=== PATIENT | female | born 1995 | race Caucasian/White ===

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

== ENCOUNTER 2017-10-20 18:17 | Emergency (ER) | payer SELFPAY ==
[2017-10-20 18:23] VITALS: BP 127/84
[2017-10-20] MEDS ORDERED: MOTRIN PO ONE (22:18)
[2017-10-20] MEDS ORDERED: BOOSTRIX IM ONE (22:18)
--- NOTE | 2017-10-20 22:19 | Emergency Department Report ---
ED Upper Extremity Inj HPI - General Chief Complaint: Extremity Injury, Upper Stated Complaint: FINGERS INFECTED Time Seen by Provider: 10/20/17 21:59 Source: patient Mode of arrival: Ambulatory Limitations: No Limitations - History of Present Illness Initial Comments: This is a 22-year-old female nontoxic, well nourished in appearance, no acute signs of distress presents to the ED with c/o of right ring finger artifical nail pain. Patient stated that he bended her nail to develop pain and there is dry blood. Patient denies any pus, drainage, fever, chills, nausea, vomiting, chest pain or shortness of breath. Patient denies any allergies significant past medical history. -: days(s) (3) Other Extremity Injury: Fingers: Right Other Injuries: none Place: home Severity scale (0 -10): 8 Improves With: immobilization Worsens With: movement of extremity Associated Symptoms: denies other symptoms. denies: weakness, numbness, neck pain, suspects foreign body, nausea/vomiting, heard/felt popping sensat - Related Data Home Medications Medication Instructions Recorded Confirmed Last Taken Tablet 1 tab PO DAILY 05/08/15 05/08/15 Unknown Previous Rx's Medication Instructions Recorded Last Taken Type Promethazine [Phenergan TAB] 25 mg PO Q6HR PRN #12 tab 05/08/15 Unknown Rx Amoxicillin [Trimox CAP] 500 mg PO Q12H 10 Days capsule 08/24/16 Unknown Rx Ibuprofen [Motrin 600 MG tab] 600 mg PO Q8H PRN 5 Days tablet 08/24/16 Unknown Rx Ibuprofen [Motrin] 600 mg PO Q8H PRN #30 tablet 10/20/17 Unknown Rx Sulfamethoxazole/Trimethoprim 1 each PO BID #14 tablet 10/20/17 Unknown Rx [Bactrim DS TAB] Allergies Allergy/AdvReac Type Severity Reaction Status Date / Time No Known Allergies Allergy Verified 10/20/17 18:21 ED Review of Systems ROS: Stated complaint: FINGERS INFECTED Other details as noted in HPI Constitutional: denies: chills, fever Eyes: denies: eye pain, eye discharge, vision change ENT: denies: ear pain, throat pain Respiratory: denies: cough, shortness of breath, wheezing Cardiovascular: denies: chest pain, palpitations Endocrine: no symptoms reported Gastrointestinal: denies: abdominal pain, nausea, diarrhea Genitourinary: denies: urgency, dysuria, discharge Musculoskeletal: denies: back pain, joint swelling, arthralgia Skin: denies: rash, lesions Neurological: denies: headache, weakness, paresthesias Psychiatric: denies: anxiety, depression Hematological/Lymphatic: denies: easy bleeding, easy bruising ED Past Medical Hx - Past Medical History Previous Medical History?: No - Surgical History Past Surgical History?: No - Social History Smoking Status: Never Smoker Substance Use Type: None - Medications Home Medications: Home Medications Medication Instructions Recorded Confirmed Last Taken Type Tablet 1 tab PO DAILY 05/08/15 05/08/15 Unknown History Promethazine [Phenergan TAB] 25 mg PO Q6HR PRN #12 tab 05/08/15 Unknown Rx Amoxicillin [Trimox CAP] 500 mg PO Q12H 10 Days capsule 08/24/16 Unknown Rx Ibuprofen [Motrin 600 MG tab] 600 mg PO Q8H PRN 5 Days tablet 08/24/16 Unknown Rx Ibuprofen [Motrin] 600 mg PO Q8H PRN #30 tablet 10/20/17 Unknown Rx Sulfamethoxazole/Trimethoprim 1 each PO BID #14 tablet 10/20/17 Unknown Rx [Bactrim DS TAB] ED Physical Exam - General Limitations: No Limitations General appearance: alert, in no apparent distress - Head Head exam: Present: atraumatic, normocephalic - Eye Eye exam: Present: normal appearance - ENT ENT exam: Present: mucous membranes moist - Neck Neck exam: Present: normal inspection - Respiratory Respiratory exam: Present: normal lung sounds bilaterally. Absent: respiratory distress - Cardiovascular Cardiovascular Exam: Present: regular rate, normal rhythm. Absent: systolic murmur, diastolic murmur, rubs, gallop - GI/Abdominal GI/Abdominal exam: Present: soft, normal bowel sounds - Extremities Exam Extremities exam: Present: normal inspection, full ROM, tenderness, normal capillary refill. Absent: joint swelling - Expanded Upper Extremity Exam Right General: Present: normal inspection Hand Wrist exam: Present: normal inspection, full ROM, tenderness, other ( artificial nails with dry blood. No pus or drainage or swelling. Tender to touch. No surrounding cellulitis.). Absent: swelling, abrasion, laceration, ecchymosis, deformity, crepidus, dislocation, erythema, amputation, nail avulsion, subungual hematoma Neuro motor exam: Present: wrist extension intact, thumb opposition intact, thumb IP flexion intact, thumb adduction intact, fingers 2-5 abduction intact Neurosensory exam: Present: 2-point discrimination, radial nerve intact, ulnar nerve intact, median nerve intact Vascular: Present: vascular compromise, normal capillary refill, radial pulse, brachial pulse, ulnar pulse - Back Exam Back exam: Present: normal inspection, full ROM - Neurological Exam Neurological exam: Present: alert, oriented X3 - Psychiatric Psychiatric exam: Present: normal affect, normal mood - Skin Skin exam: Present: warm, dry, intact, normal color. Absent: rash ED Course Vital Signs 10/20/17 18:21 Temperature 98.2 F Pulse Rate 97 H Respiratory 18 Rate Blood Pressure 127/84 O2 Sat by Pulse 98 Oximetry - Reevaluation(s) Reevaluation #1: 10/20/17 22:17 Patient is speaking in full sentences with no signs of distress noted. ED Medical Decision Making - Medical Decision Making This is a 22-year-old female presents with pain to the nails. Upon examination there is no cellulitis or abscess. I felt the patient that she must go to move her artificial nails and that we will give her provider for further evaluation of possible nail avulsion. Or I stated to the patient that I could do a digital block and remove the nail but due to the fact that I was not aware to visualize it is any nail avulsion the patient stated she would rather have it removed by a nail salon and if there is any nail damage to return to the ER for further evaluation and treatment. I will treat patient apparently with Bactrim. Patient has received a tetanus in the ED. Patient was instructed to Follow-up with a primary care doctor in 3-5 days or if symptoms worsen and continue return to emergency room as soon as possible. At time of discharge, the patient does not seem toxic or ill in appearance. No acute signs of distress noted. Patient agrees to discharge treatment plan of care. No further questions noted by the patient. Critical care attestation.: If time is entered above; I have spent that time in minutes in the direct care of this critically ill patient, excluding procedure time. ED Disposition Clinical Impression: Pain around nail Disposition: - TO HOME OR SELFCARE Is pt being admited?: No Does the pt Need Aspirin: No Condition: Stable Additional Instructions: Follow-up with a primary care doctor in 3-5 days or if symptoms worsen and continue return to emergency room as soon as possible. Prescriptions: Ibuprofen [Motrin] 600 mg PO Q8H PRN #30 tablet PRN Reason: Pain Sulfamethoxazole/Trimethoprim [Bactrim DS TAB] 1 each PO BID #14 tablet Referrals: PRIMARY CAREMD [Primary Care Provider] - 3-5 Days OLVIN WARE MD [Staff Physician] - 3-5 Days [facility] [Outside] - 3-5 Days [facility] [Outside] - 3-5 Days Forms: Work/School Release Form(ED)
[2017-10-21] MEDS ORDERED: XYLOCAINE 1% MPF 5 mL INFILTRATI ONE (01:16)
== END 2017-10-21 02:30 | disposition home or self-care (01) ==
LOC: ED 18:17
DX: S61.304A Unspecified open wound of right ring finger with damage to nail, initial encounter (principal); X58.XXXA Exposure to other specified factors, initial encounter; Y93.89 Activity, other specified; Y92.89 Other specified places as the place of occurrence of the external cause; Y99.8 Other external cause status
CPT/HCPCS: 90471; 90715

== ENCOUNTER 2021-06-03 08:16 | Emergency (ER) | payer MEDICAID ==
[2021-06-03 08:43] LABS: Basophils % (Auto) 0.6 % (0.0-1.8); Eosinophils # (Auto) 0.2 K/mm3 (0.0-0.4); Eosinophils % (Auto) 3.3 % (0.0-4.3); Lymphocytes # (Auto) 1.6 K/mm3 (1.2-5.4); Lymphocytes % (Auto) 33.8 % (13.4-35.0); Mean Corpuscular HGB Conc 30 % (30-34); Mean Corpuscular Volume 81 fl (79-97); Monocytes # (Auto) 0.5 K/mm3 (0.0-0.8); Monocytes % (Auto) 9.6 % (0.0-7.3); Platelet Count 252 K/mm3 (140-440); Red Blood Count 5.01 M/mm3 (3.65-5.03); Red Cell Distribution Width 15.8 % (13.2-15.2)
--- NOTE | 2021-06-03 08:45 | Emergency Department Report ---
HPI - General Chief Complaint: Abdominal Pain Time Seen by Provider: 06/03/21 08:30 - HPI HPI: MSE 6 --> MSE 4 The patient is a 25-year-old female present with a chief complaint of abdominal pain. The patient states her family and noticed that she had a "ball" in her left upper quadrant approximately 1 month ago. The patient states she did not notice it and was asymptomatic. The patient states yesterday she awakened with pain in the left upper quadrant feels as though she had been punched but she denies any history of trauma. She states again her family noticed that the left side of her abdomen seemed more swollen than the right so she went to an urgent care facility. The urgent care facility recommended she come to the emergency department for further evaluation. Patient denies dysuria, hematuria or vaginal discharge. Patient denies history of sore throat, fever or cough. ED Past Medical Hx - Past Medical History Previous Medical History?: No - Surgical History Past Surgical History?: No - Family History Family history: no significant - Social History Smoking Status: Never Smoker Substance Use Type: None (Denies illicit drug use) - Medications Home Medications: Home Medications Medication Instructions Recorded Confirmed Last Taken Type Tablet 1 tab PO DAILY 05/08/15 05/08/15 Unknown History Promethazine [Phenergan TAB] 25 mg PO Q6HR PRN #12 tab 05/08/15 Unknown Rx Amoxicillin [Trimox CAP] 500 mg PO Q12H 10 Days capsule 08/24/16 Unknown Rx Ibuprofen [Motrin 600 MG tab] 600 mg PO Q8H PRN 5 Days tablet 08/24/16 Unknown Rx Ibuprofen [Motrin] 600 mg PO Q8H PRN #30 tablet 10/20/17 Unknown Rx Sulfamethoxazole/Trimethoprim 1 each PO BID #14 tablet 10/20/17 Unknown Rx [Bactrim DS TAB] Famotidine [Pepcid] 20 mg PO BID #20 tablet 06/03/21 Unknown Rx traMADoL [Ultram] 50 mg PO Q6HR PRN #10 tablet 06/03/21 Unknown Rx ED Review of Systems ROS: Stated complaint: SPLEEN PAIN Other details as noted in HPI Constitutional: denies: fever Eyes: denies: eye pain ENT: denies: throat pain Respiratory: no symptoms reported Cardiovascular: denies: chest pain Endocrine: no symptoms reported Gastrointestinal: abdominal pain. denies: nausea, vomiting Genitourinary: denies: dysuria, hematuria, discharge, abnormal menses Musculoskeletal: denies: back pain Neurological: denies: headache Physical Exam - Physical Exam Vital Signs: Vital Signs 06/03/21 08:18 Temperature 98.8 F Pulse Rate 77 Respiratory 16 Rate Blood Pressure 146/79 [Right] O2 Sat by Pulse 100 Oximetry Physical Exam: GENERAL: The patient is well-developed well-nourished female lying on stretcher not appearing to be in acute. [] HEENT: Normocephalic. Atraumatic. Extraocular motions are intact. Patient has moist mucous membranes. NECK: Supple. Trachea midline CHEST/LUNGS: Clear to auscultation. There is no respiratory distress noted. HEART/CARDIOVASCULAR: Regular. There is no tachycardia. There is no gallop rub or murmur. ABDOMEN: Abdomen is soft, with mild discomfort to palpation in left upper quadrant. No appreciable splenomegaly. No rebound or guard. Patient has normal bowel sounds. There is no abdominal distention. SKIN: There is no rash. There is no edema. There is no diaphoresis. NEURO: The patient is awake, alert, and oriented. The patient is cooperative. The patient has no focal neurologic deficits. The patient has normal speech and gait. GCS 15 MUSCULOSKELETAL: There is no CVA tenderness. There is no evidence of acute injury. ED Course Vital Signs 06/03/21 08:18 Temperature 98.8 F Pulse Rate 77 Respiratory 16 Rate Blood Pressure 146/79 [Right] O2 Sat by Pulse 100 Oximetry ED Medical Decision Making - Lab Data Result diagrams: 06/03/21 08:28 06/03/21 08:28 Laboratory Tests 06/03/21 06/03/21 06/03/21 08:28 08:28 08:28 WBC 4.8 RBC 5.01 Hgb 12.3 Hct 40.5 MCV 81 MCH 25 L MCHC 30 RDW 15.8 H Plt Count 252 Lymph % (Auto) 33.8 Ashley % (Auto) 9.6 H Eos % (Auto) 3.3 Baso % (Auto) 0.6 Lymph # (Auto) 1.6 Ashley # (Auto) 0.5 Eos # (Auto) 0.2 Baso # (Auto) 0.0 Seg Neutrophils % 52.7 Seg Neutrophils # 2.5 Sodium 138 Potassium 4.3 Chloride 104.7 Carbon Dioxide 21 L Anion Gap 17 BUN 24 H Creatinine 0.6 Estimated GFR > 60 BUN/Creatinine Ratio 40 Glucose 84 Calcium 9.1 Total Bilirubin 0.30 AST 14 ALT 10 Alkaline Phosphatase 57 Total Protein 7.2 Albumin 4.2 Albumin/Globulin Ratio 1.4 Lipase 34 HCG, Qual Negative Urine Color Urine Turbidity Urine pH Ur Specific [place] Urine Protein Urine Glucose (UA) Urine Ketones Urine Blood Urine Nitrite Urine Bilirubin Urine Urobilinogen Ur Leukocyte Esterase Urine WBC (Auto) Urine RBC (Auto) Monoscreen Negative 06/03/21 13:57 WBC RBC Hgb Hct MCV MCH MCHC RDW Plt Count Lymph % (Auto) Ashley % (Auto) Eos % (Auto) Baso % (Auto) Lymph # (Auto) Ashley # (Auto) Eos # (Auto) Baso # (Auto) Seg Neutrophils % Seg Neutrophils # Sodium Potassium Chloride Carbon Dioxide Anion Gap BUN Creatinine Estimated GFR BUN/Creatinine Ratio Glucose Calcium Total Bilirubin AST ALT Alkaline Phosphatase Total Protein Albumin Albumin/Globulin Ratio Lipase HCG, Qual Urine Color Yellow Urine Turbidity Hazy Urine pH 6.0 Ur Specific [place] 1.059 H Urine Protein <15 mg/dl Urine Glucose (UA) Neg Urine Ketones Neg Urine Blood Neg Urine Nitrite Neg Urine Bilirubin Neg Urine Urobilinogen < 2.0 Ur Leukocyte Esterase Mod Urine WBC (Auto) 6.0 Urine RBC (Auto) 2.0 Monoscreen - Radiology Data Radiology results: report reviewed (CT abdomen pelvis), image reviewed (CT abdomen pelvis) [address] [address] Cat Scan Report Signed Patient: LIBAN VILLATORO MR#: [id number] : 1995 Acct:[id number] Age/Sex: 25 / F ADM Date: 06/03/21 Loc: ED Attending Dr: Timi amin Physician: MITESH RAYGOZA MD Date of Service: 06/03/21 Procedure(s): CT abdomen pelvis w con Accession Number(s): [id number] cc: MITESH RAYGOZA MD CT ABDOMEN AND PELVIS WITH CONTRAST HISTORY: Left upper quadrant pain 100 ML OMNI 300 COMPARISON: None TECHNIQUE: Routine abdominal and pelvic CT exam performed following intravenous contrast administration.. All CT scans at this location are performed using CT dose reduction for ALARA by means of automated exposure control. FINDINGS: CT ABDOMEN: Lung Bases: No significant abnormality. Liver: No significant abnormality. Biliary: No significant abnormality. Spleen: No significant abnormality. Unenlarged. Pancreas: No significant abnormality. Adrenals: No significant abnormality. Kidneys: No significant abnormality. Lymphatics: No lymphadenopathy. Vasculature: No significant abnormality. Bowel/Peritoneum: No significant abnormality. No free air. No free fluid. CT PELVIC: : No significant abnormality. Lymphatics: No lymphadenopathy. Osseous Structures: No aggressive appearing osseous lesions. Additional Findings: None IMPRESSION: 1. No significant abnormality. Signer Name: Denver Roberts MD Signed: 06/03/2021 9:53 AM Workstation Name: [id number] Transcribed By: YUNI Dictated By: Denver Roberts MD Electronically Authenticated By: Denver Roberts MD Signed Date/Time: 06/03/21952 DD/ 8 TD/TT: Print Cancel - Differential Diagnosis Spontaneous splenic injury, splenic infarct, PUD, mono, gastrit Critical care attestation.: If time is entered above; I have spent that time in minutes in the direct care of this critically ill patient, excluding procedure time. ED Disposition Clinical Impression: Acute abdominal pain Disposition: HOME / SELF CARE / HOMELESS Is pt being admited?: No Does the pt Need Aspirin: No Condition: Stable Instructions: Abdominal Pain (ED), Abdominal Pain, Adult Additional Instructions: Return to the emergency department should you develop worsening symptoms, inability to tolerate food or liquids, high fever or any other concerns Prescriptions: Famotidine [Pepcid] 20 mg PO BID #20 tablet traMADoL [Ultram] 50 mg PO Q6HR PRN #10 tablet PRN Reason: Pain Referrals: LEN HERNANDEZ MD [Primary Care Provider] - 3-5 Days [facility] [Provider Group] - 3-5 Days ELLEN GALINDO MD [Staff Physician] - 3-5 Days (Dr. Galindo is a superintendent local. Please follow-up with him for further evaluation) Time of Disposition: 14:49
[2021-06-03 08:47] LABS: Hematocrit 40.5 % (30.3-42.9); Hemoglobin 12.3 gm/dl (10.1-14.3)
[2021-06-03 09:06] LABS: Alanine Aminotransferase 10 units/L (7-56); Albumin 4.2 g/dL (3.9-5); Blood Urea Nitrogen 24 mg/dL (7-17); Calcium 9.1 mg/dL (8.4-10.2); Hemolysis Index 23
[2021-06-03 09:09] LABS: BUN/Creatinine Ratio 40
--- NOTE | 2021-06-03 09:57 | Cat Scan Report ---
CT ABDOMEN AND PELVIS WITH CONTRAST HISTORY: Left upper quadrant pain 100 ML OMNI 300 COMPARISON: None TECHNIQUE: Routine abdominal and pelvic CT exam performed following intravenous contrast administrat ion.. All CT scans at this location are performed using CT dose reduction for ALARA by means of autom ated exposure control. FINDINGS: CT ABDOMEN: Lung Bases: No significant abnormality. Liver: No significant abnormality. Biliary: No significant abnormality. Spleen: No significant abnormality. Unenlarged. Pancreas: No significant abnormality. Adrenals: No significant abnormality. Kidneys: No significant abnormality. Lymphatics: No lymphadenopathy. Vasculature: No significant abnormality. Bowel/Peritoneum: No significant abnormality. No free air. No free fluid. CT PELVIC: : No significant abnormality. Lymphatics: No lymphadenopathy. Osseous Structures: No aggressive appearing osseous lesions. Additional Findings: None IMPRESSION: 1. No significant abnormality. Signer Name: Denver Roberts MD Signed: 06/03/2021 9:53 AM Workstation Name: [id number]
[2021-06-03 14:42] LABS: Bilirubin,Urine NEG (Negative); Blood,Urine NEG (Negative); Color,Urine Yellow (Yellow); Protein,Urine <15 mg/dL mg/dL (Negative); Urobilinogen,Urine < 2.0 mg/dL (<2.0)
[2021-06-03 15:29] VITALS: BP 116/76
== END 2021-06-03 15:28 | disposition home or self-care (01) ==
LOC: ED 08:16
DX: R10.9 Unspecified abdominal pain (principal)
CPT/HCPCS: 36415; 74177; 80053; 81001; 83690; 84703; 85025; 86308; 99284; Q9967